=== PATIENT | male | born 1945 | race Caucasian/White ===

== ENCOUNTER 2021-08-19 22:15 | Emergency (ER) | payer OTHER, MEDICAID ==
[~2021-08-19] VITALS: Ht 167.6 cm; Wt 62.0 kg
[2021-08-19] MEDS ORDERED: SODIUM CHLORIDE 0.9% 1,000 ML IV ONE (23:15)
[2021-08-19 23:47] LABS: BASOPHILS % 0.5 % (0.0-2.0); EOSINOPHILS % 2.4 % (0.0-5.0); HEMATOCRIT. 37.8 % (42.0-52.0); HEMOGLOBIN. 12.4 g/dL (14.0-18.0); MEAN CORPUSCULAR HEMOGLOBIN 29.3 pg (28.0-32.0); MEAN CORPUSCULAR VOLUME 89.1 fL (80.0-94.0); MEAN PLATELET VOLUME 8.2 fl (7.4-10.4); MONOCYTES % 6.4 % (2.0-8.0); NEUTROPHILS % 78.7 % (40.0-76.0); PLATELET 221 x1000/uL (130-400); RED BLOOD CELL COUNT 4.25 mill/uL (4.7-6.1); RED CELL DISTRIBUTION WIDTH 13.3 % (11.6-14.6)
[2021-08-20 00:02] LABS: CHLORIDE 104 mEq/L (98-107)
[2021-08-20] MEDS ORDERED: ENALAPRIL 5MG TABLET PO SCH (01:00)
[2021-08-20] MEDS ORDERED: ENAL5TAB75 MT (01:15)
[2021-08-20 02:05] VITALS: BP 190/103
== END 2021-08-20 02:08 | disposition home or self-care (01) ==
LOC: ER 22:15
DX: I10 Essential (primary) hypertension (principal); R42 Dizziness and giddiness; H54.7 Unspecified visual loss
CPT/HCPCS: 36415; 71045; 80053; 84484; 85025; 99284; J7030

== ENCOUNTER 2022-02-27 20:14 | Inpatient (IN) | payer OTHER, MEDICAID ==
[~2022-02-27] VITALS: Ht 165.1 cm; Wt 70.3 kg
[~2022-02-27 20:14] MED LIST: ENAL5TAB75 MT
[2022-02-27] MEDS ORDERED: SODIUM CHLORIDE 0.9% 1,000 ML IV ONE (22:00)
[2022-02-27 22:41] LABS: BASOPHILS % 0.7 % (0.0-2.0); EOSINOPHILS % 3.2 % (0.0-5.0); HEMATOCRIT. 37.6 % (42.0-52.0); HEMOGLOBIN. 12.5 g/dL (14.0-18.0); LYMPHOCYTES % 15.9 % (20.0-50.0); MEAN CORPUSCULAR HEMOGLOBIN 29.4 pg (28.0-32.0); MEAN CORPUSCULAR VOLUME 88.8 fL (80.0-94.0); MEAN PLATELET VOLUME 7.6 fl (7.4-10.4); MONOCYTES % 5.6 % (2.0-8.0); NEUTROPHILS % 74.6 % (40.0-76.0); PLATELET 249 x1000/uL (130-400); RED BLOOD CELL COUNT 4.23 mill/uL (4.7-6.1); RED CELL DISTRIBUTION WIDTH 14.1 % (11.6-14.6)
[2022-02-27 22:45] LABS: CHLORIDE 109 mEq/L (98-107)
[2022-02-28] MEDS ORDERED: CEFTRIAXONE 1 G PREMIX 50 ML IV NR (01:15)
[2022-02-28] MEDS ORDERED: AZITHROMYCIN 500MG/250ML 250 ML IV NR (01:15)
[2022-02-28 01:25] LABS: CLARITY URINE CLEAR (CLEAR); COLOR URINE YELLOW (YELLOW); KETONES URINE NEGATIVE (NEGATIVE); LEUKOCYTE ESTERASE URINE NEGATIVE (NEGATIVE); NITRITE URINE NEGATIVE (NEGATIVE); OCCULT BLOOD URINE NEGATIVE (NEGATIVE); PROTEIN URINE 2+ (NEGATIVE); SPECIFIC GRAVITY URINE 1.015 (1.005-1.030)
[2022-02-28 10:30] VITALS: BP 189/95
[2022-02-28] MEDS ORDERED: DEXTROSE 50% WATER 50ML SYRINGE IV PRN (11:00)
[2022-02-28] MEDS ORDERED: NA PHOS,M-B/NA PHOS,DI-BA ENEMA 118ML PR PRN (11:00)
[2022-02-28] MEDS ORDERED: ONDANSETRON HCL 4MG/2ML INJ IV PRN (11:00)
[2022-02-28] MEDS ORDERED: ACETAMINOPHEN 325MG TABLET PO PRN (11:00)
[2022-02-28] MEDS ORDERED: CLONIDINE 0.1MG TABLET PO PRN (11:00)
[2022-02-28] MEDS ORDERED: GUAIFENESIN 200MG/10ML SUGAR FREE UDC PO PRN (11:00)
[2022-02-28] MEDS ORDERED: DIPHENHYDRAMINE 50MG/ML VIAL IV PRN (11:00)
[2022-02-28 12:00] VITALS: BP 189/95
[2022-02-28] MEDS ORDERED: MAGNESIUM/ALUMINUM HYDROXIDE/SIMETHICONE 30ML UDC PO PRN (12:00)
[2022-02-28] MEDS ORDERED: MAGNESIUM HYDROXIDE 400MG/5ML 30ML UDC PO PRN (12:00)
[2022-02-28] MEDS: BLOOD SUGAR DIAGNOSTIC STRIP TEST SCH ×3 (12:49→21:00)
[2022-02-28] MEDS: ACETAMINOPHEN 325MG TABLET PO PRN (12:59)
[2022-02-28] MEDS: HYDRALAZINE 20MG/ML VIAL IV PRN (12:59)
[2022-02-28] MEDS: INSULIN LISPRO 100 UNITS/ML SUBCUT SCH ×3 (13:09→22:13)
[2022-02-28] MEDS: ENOXAPARIN 40MG/0.4ML SYR SUBCUT SCH (13:16)
[2022-02-28] MEDS: SODIUM CHLORIDE 0.9% INJ 3ML FLUSH IVF SCH ×2 (14:00→22:13)
[2022-02-28 16:00] VITALS: BP 171/93
[2022-02-28] MEDS ORDERED: CEFTRIAXONE 1 G PREMIX 50 ML IV SCH (16:45)
[2022-02-28] MEDS: DOCUSATE SODIUM 100MG CAPSULE PO SCH (17:33)
[2022-02-28 20:00] VITALS: BP 188/99
[2022-02-28] MEDS ORDERED: ZOLPIDEM TARTRATE 5MG TABLET PO PRN (21:00)
[2022-02-28] MEDS ORDERED: FAMOTIDINE 20MG TABLET PO SCH (21:00)
[2022-02-28] MEDS: ENALAPRIL 5MG TABLET PO SCH (22:12)
[2022-02-28 22:30] VITALS: BP 130/70
[2022-02-28] MEDS ORDERED: CEFTRIAXONE 1,000 MG in DEXTROSE 5% WATER 50 ML IV SCH (23:00)
[2022-03-01] VITALS: BP 208/96
[2022-03-01] MEDS: HYDRALAZINE 20MG/ML VIAL IV PRN (00:24)
[2022-03-01] MEDS: ACETAMINOPHEN 325MG TABLET PO PRN (01:08)
[2022-03-01 03:59] VITALS: BP 129/70
[2022-03-01] MEDS: SODIUM CHLORIDE 0.9% INJ 3ML FLUSH IVF SCH ×2 (05:29→13:31)
[2022-03-01] MEDS: INSULIN LISPRO 100 UNITS/ML SUBCUT SCH ×2 (06:41→13:30)
[2022-03-01] MEDS: BLOOD SUGAR DIAGNOSTIC STRIP TEST SCH ×2 (06:41→12:06)
[2022-03-01 08:00] VITALS: BP 136/76
[2022-03-01] MEDS: DOCUSATE SODIUM 100MG CAPSULE PO SCH (09:39)
[2022-03-01] MEDS: ENALAPRIL 5MG TABLET PO SCH (09:39)
[2022-03-01 12:00] VITALS: BP 161/71
[2022-03-01] MEDS: ENOXAPARIN 40MG/0.4ML SYR SUBCUT SCH (13:31)
[2022-03-01 14:10] VITALS: BP 146/74
== END 2022-03-01 14:55 | disposition home or self-care (01) | DRG 73 ==
LOC: ER 20:14 → EDBEDREQTM 02-28 03:45 → EDBEDREQ 02-28 03:45 → 7WST 02-28 11:08
PROVIDERS: ADMIT Internal Medicine; ATTEND Internal Medicine
DX: G90.8 Other disorders of autonomic nervous system (principal); J18.9 Pneumonia, unspecified organism; H54.7 Unspecified visual loss; E11.9 Type 2 diabetes mellitus without complications; D64.9 Anemia, unspecified; R79.89 Other specified abnormal findings of blood chemistry
CPT/HCPCS: 36415; 71045; 74176; 80053; 81003; 82962; 83036; 83605; 83880; 84484; 85025; 86850; 86900; 93005; 93306; 93970; 99291; J0360; J0456; J0696; J1650; J1815; J7030; J7060